=== PATIENT | male | born 1950 | race Caucasian/White ===

== ENCOUNTER 2016-04-12 00:10 | Emergency (ER) | payer MEDICARE, OTHER ==
[2016-04-12] MEDS ORDERED: METHYLPREDNISOLONE PF 125MG/VIAL IVP ONE ×2 (00:38→00:54)
[2016-04-12] MEDS ORDERED: DIPHENHYDRAMINE HCL IV 50 MG/ML VIAL IV ONE (00:38)
[2016-04-12] MEDS ORDERED: FAMOTIDINE IV 20 MG/2 ML VIAL IVP ONE (00:38)
--- NOTE | 2016-04-12 00:38 | Emergency Department Record ---
History of Present Illness - General Chief complaint: Facial Swelling Stated complaint: TONGUE SWOLLEN Time Seen by Provider: 04/12/16 00:32 Source: Patient Mode of Arrival: Ambulatory - History of Present Illness Initial Comments: The patient states he woke up tonight with the left side of his tongue swollen. He denies DANN, rashes, itchiness, dysphagia or voice changes. He takes an unknown blood pressure medicine, and three other medications which are listed on the chart. None of them are new. MD Complaint: Other (swollen tongue) Onset/Timin -: Hour(s) Severity: Moderate Treatment Prior to Arrival: None Previous Allergy History: Angioedema - Related Data Home Medications Medication Instructions Recorded Confirmed Last Taken (Blood Pressure Medication) 04/12/16 Unknown Aspirin [Aspirin EC] 81 mg PO DAILY 04/12/16 04/12/16 Unknown Lasix (Uknown Dose) 04/12/16 Unknown Simvastatin (Uknown Dose) 04/12/16 Unknown Previous Rx's Medication Instructions Recorded Famotidine [Heartburn Prevention] 20 mg PO BID #14 tablet 04/12/16 Prednisone [Prednisone 20Mg] 20 mg PO DAILY #20 tab 04/12/16 Allergies Allergy/AdvReac Type Severity Reaction Status Date / Time Penicillins Allergy BLISTERS Verified 04/12/16 00:23 Travel Screening - Travel/Exposure Within Last 30 Days Have you traveled within the last 30 days?: No Review of Systems Reviewed: No additional complaints except as noted below Constitutional: Reports: As per HPI. Denies: Chills, Fever, Malaise, Night sweats, Weakness, Weight change Eyes: Reports: As per HPI. Denies: Eye discharge, Eye pain, Photophobia, Vision change ENT: Reports: As per HPI. Denies: Congestion, Dental pain, Ear pain, Epistaxis , Hearing loss, Throat pain Respiratory: Reports: As per HPI. Denies: Cough, Dyspnea, Hemoptysis, Stridor, Wheezes Cardiovascular: Reports: As per HPI. Denies: Arrhythmia, Chest pain, Dyspnea on exertion, Edema, Murmurs, Orthopnea, Palpitations, Paroxysmal nocturnal dyspnea, Rheumatic Fever, Syncope Endocrine: Reports: As per HPI. Denies: Fatigue, Heat or cold intolerance, Polydipsia, Polyuria Gastrointestinal: Reports: As per HPI. Denies: Abdominal pain, Constipation, Diarrhea, Hematemesis, Hematochezia, Melena, Nausea, Vomiting Genitourinary: Reports: As per HPI. Denies: Dysuria, Frequency, Hematuria, Incontinence, Retention, Testicular pain, Testicular mass, Urgency Musculoskeletal: Reports: As per HPI. Denies: Arthralgia, Back pain, Gout, Joint swelling, Myalgia, Neck pain Skin: Reports: As per HPI. Denies: Bruising, Change in color, Change in hair/ nails, Lesions, Pruritus, Rash Neurological: Reports: As per HPI. Denies: Abnormal gait, Confusion, Headache, Numbness, Paresthesias, Seizure, Tingling, Tremors, Vertigo, Weakness Psychiatric: Reports: As per HPI. Denies: Anxiety, Auditory hallucinations, Depression, Homicidal thoughts, Suicidal thoughts, Visual hallucinations Hematological/Lymphatic: Reports: As per HPI. Denies: Anemia, Blood Clots, Easy bleeding, Easy bruising, Swollen glands Past Medical History - SOCIAL HISTORY Smoking Status: Never smoker Alcohol Use: None Drug Use: None - RESPIRATORY Hx Respiratory Disorders: No - CARDIOVASCULAR Hx Cardio Disorders: Yes Hx CHF: Yes Hx Hypertension: Yes - NEURO Hx Neuro Disorders: No - GI Hx GI Disorders: Yes Comment:: Barretts Esophagus - Hx Genitourinary Disorders: Yes Hx Kidney Stones: Yes (hx) - ENDOCRINE Hx Endocrine Disorders: No - MUSCULOSKELETAL Hx Musculoskeletal Disorders: No - PSYCH Hx Psych Problems: No - HEMATOLOGY/ONCOLOGY Hx Hematology/Oncology Disorders: No Family Medical History Any Significant Family History?: No Physical Exam - General General Appearance: Alert, Oriented x3, Cooperative, Mild distress (no stridor or drooling, speaks like "marble mouth") - Head Head exam: Normal inspection - Eye Eye exam: Normal appearance, PERRL Pupils: Normal accommodation - ENT ENT exam: Normal exam, Mucous membranes moist, Normal external ear exam, TM's normal bilaterally, Other (left side of tongue is swollen but posterior oral cavity is spared, normal uvula and voice) Ear exam: Normal external inspection. negative: External canal tenderness Nasal Exam: Normal inspection. negative: Discharge, Sinus tenderness Mouth exam: Normal external inspection, Other (left side of tongue swollen) Teeth exam: Normal inspection. negative: Dental caries Throat exam: Normal inspection. negative: Tonsillar erythema, Tonsillar exudate , R peritonsillar mass, L peritonsillar mass - Neck Neck exam: Normal inspection, Full ROM. negative: Lymphadenopathy, Meningismus , Tenderness - Respiratory Respiratory exam: Normal lung sounds bilaterally. negative: Respiratory distress - Cardiovascular Cardiovascular Exam: Regular rate, Normal rhythm, Normal heart sounds - GI/Abdominal GI/Abdominal exam: Soft, Normal bowel sounds. negative: Tenderness - Rectal Rectal exam: Deferred - exam: Deferred - Extremities Extremities exam: Normal inspection, Full ROM, Normal capillary refill. negative: Tenderness - Back Back exam: Reports: Normal inspection, Full ROM. Denies: Muscle spasm, Rash noted, Tenderness - Neurological Neurological exam: Alert, CN II-XII intact, Normal gait, Oriented X3, Reflexes normal - Psychiatric Psychiatric exam: Normal affect, Normal mood - Skin Skin exam: Dry, Intact, Normal color, Warm Course Vital Signs 04/12/16 00:18 Temperature 97.7 F Pulse Rate [ 88 Pulse Ox Probe] Respiratory 18 Rate Blood Pressure 155/78 [Left Arm] Pulse Ox 96 - Reevaluation(s) Reevaluation #1: A list of the common CHAPIN inhibitor medications was read to the patient. He thought one sounded familiar but is uncertain. The patient was advised to write down his medications, their doses, and their frequency on a paper to carry in his wallet and also in another family member's wallet. 04/12/16 00:48 Reevaluation #2: The patient states his tongue swelling has decreased but it is not yet normal. He will call the pharmacy to see if his unknown blood pressure medicine is an CHAPIN inhibitor and NOT take this medicine if it is. He will then talk to his PCP to change his medication if indicated. 04/12/16 01:36 Medical Decision Making - Management Options MDM Management: No Additional Work-up Planned Disposition Disposition: Discharge Clinical Impression: Tongue swelling Disposition: Home, Self-Care Condition: (1) Good Instructions: General Allergic Reaction (ED) Additional Instructions: Do not take your blood pressure medication until you can verify the name of it with pharmacy or PCP. If you are taking and CHAPIN inhibitor, then discontinue this medication. Take prednisone taper as instructed until gone. Take benadryl 50 mg every 6 hours. This may cause drowsiness. Follow up with your PCP on Friday for recheck and dosing of medications. Prescriptions: Famotidine [Heartburn Prevention] 20 mg PO BID #14 tablet Prednisone [Prednisone 20Mg] 20 mg PO DAILY #20 tab
[2016-04-12] MEDS ORDERED: DIPHENHYDRAMINE HCL IV 50 MG/ML VIAL IVP ONE (00:54)
[2016-04-12] MEDS ORDERED: 0.9 % SODIUM CHLORIDE 1000ML 1,000 ML IV ONE (00:54)
[2016-04-12] MEDS ORDERED: FAMOTIDINE IV 20 MG in 0.9 % SODIUM CHLORIDE 100ML 50 ML IVPB ONE (00:54)
== END 2016-04-12 01:48 | disposition home or self-care (01) ==
LOC: ER 00:10
DX: R22.0 Localized swelling, mass and lump, head (principal); I10 Essential (primary) hypertension
CPT/HCPCS: 96374; 96375; 99284; J1200; J2930; J3490

== ENCOUNTER 2016-10-26 22:12 | Emergency (ER) | payer MEDICARE, OTHER ==
--- NOTE | 2016-10-26 22:33 | Emergency Department Record ---
History of Present Illness - General Chief Complaint: General Stated Complaint: BLEEDING FROM SCRAB Time Seen by Provider: 10/26/16 22:28 Source: Patient Mode of Arrival: EMS - History of Present Illness Initial comments: The patient has not taken his medications for more than 3 months. He has numerous chronic medical problems but has not been compliant, even with his chronic wounds, the dressing of those wounds, and medications. Tonight he picked a scab off his left foot which started a varicose vein to spurt without stopping. He states that both his kidneys hurt, the left more than the right. - [place] Coma Scale Eye Response: (4) Open spontaneously Motor Response: (6) Obeys commands Verbal Response: (5) Oriented [place] Total: 15 - Related Data Home Medications Medication Instructions Recorded Confirmed Last Taken No Home Med [NO HOME MEDS] 10/26/16 10/26/16 Unknown Allergies Allergy/AdvReac Type Severity Reaction Status Date / Time Penicillins Allergy BLISTERS Verified 04/12/16 00:23 Travel Screening - Travel/Exposure Within Last 30 Days Have you traveled within the last 30 days?: No - Travel Symptoms Symptom Screening: None Review of Systems Reviewed: No additional complaints except as noted below Constitutional: Reports: As per HPI. Denies: Chills, Fever, Malaise, Night sweats, Weakness, Weight change Eyes: Reports: As per HPI. Denies: Eye discharge, Eye pain, Photophobia, Vision change ENT: Reports: As per HPI. Denies: Congestion, Dental pain, Ear pain, Epistaxis , Hearing loss, Throat pain Respiratory: Reports: As per HPI. Denies: Cough, Dyspnea, Hemoptysis, Stridor, Wheezes Cardiovascular: Reports: As per HPI. Denies: Arrhythmia, Chest pain, Dyspnea on exertion, Edema, Murmurs, Orthopnea, Palpitations, Paroxysmal nocturnal dyspnea, Rheumatic Fever, Syncope Endocrine: Reports: As per HPI. Denies: Fatigue, Heat or cold intolerance, Polydipsia, Polyuria Gastrointestinal: Reports: As per HPI. Denies: Abdominal pain, Constipation, Diarrhea, Hematemesis, Hematochezia, Melena, Nausea, Vomiting Genitourinary: Reports: As per HPI. Denies: Dysuria, Frequency, Hematuria, Incontinence, Retention, Testicular pain, Testicular mass, Urgency Musculoskeletal: Reports: As per HPI. Denies: Arthralgia, Back pain, Gout, Joint swelling, Myalgia, Neck pain Skin: Reports: As per HPI. Denies: Bruising, Change in color, Change in hair/ nails, Lesions, Pruritus, Rash Neurological: Reports: As per HPI. Denies: Abnormal gait, Confusion, Headache, Numbness, Paresthesias, Seizure, Tingling, Tremors, Vertigo, Weakness Psychiatric: Reports: As per HPI. Denies: Anxiety, Auditory hallucinations, Depression, Homicidal thoughts, Suicidal thoughts, Visual hallucinations Hematological/Lymphatic: Reports: As per HPI. Denies: Anemia, Blood Clots, Easy bleeding, Easy bruising, Swollen glands Past Medical History - SOCIAL HISTORY Smoking Status: Never smoker Alcohol Use: None Drug Use: None - RESPIRATORY Hx Respiratory Disorders: No - CARDIOVASCULAR Hx Cardio Disorders: Yes Hx CHF: Yes Hx Hypertension: Yes - NEURO Hx Neuro Disorders: No - GI Hx GI Disorders: Yes Comment:: Barretts Esophagus - Hx Genitourinary Disorders: Yes Hx Kidney Stones: Yes (hx) - ENDOCRINE Hx Endocrine Disorders: No - MUSCULOSKELETAL Hx Musculoskeletal Disorders: No - PSYCH Hx Psych Problems: No - HEMATOLOGY/ONCOLOGY Hx Hematology/Oncology Disorders: No Family Medical History Any Significant Family History?: Yes Hx Dementia: Father, Mother Hx Diabetes: Mother, Brother/Sister Physical Exam - General General Appearance: Alert, Oriented x3, Cooperative, No acute distress, Other ( poor hygeine, barefooted, bandage to involved foot, no bleeding visible on bandage) - Head Head exam: Normal inspection - Eye Eye exam: Normal appearance, PERRL Pupils: Normal accommodation - ENT ENT exam: Normal exam, Mucous membranes moist, Normal external ear exam, Normal orophraynx, TM's normal bilaterally Ear exam: Normal external inspection. negative: External canal tenderness Nasal Exam: Normal inspection. negative: Discharge, Sinus tenderness Mouth exam: Normal external inspection, Tongue normal Teeth exam: Normal inspection. negative: Dental caries Throat exam: Normal inspection. negative: Tonsillar erythema, Tonsillar exudate - Neck Neck exam: Normal inspection, Full ROM. negative: Tenderness - Respiratory Respiratory exam: Normal lung sounds bilaterally. negative: Respiratory distress - Cardiovascular Cardiovascular Exam: Regular rate, Normal rhythm, Normal heart sounds - GI/Abdominal GI/Abdominal exam: Soft, Normal bowel sounds, Other (protruberant abdomen, nontender, old surgical scars). negative: Tenderness - Rectal Rectal exam: Deferred - exam: Deferred - Extremities Extremities exam: Normal inspection, Full ROM, Normal capillary refill, Pedal edema (chronic bilateral edema with tense skin, advanced vascular changes and chronic wounds to shins and feet.). negative: Tenderness - Back Back exam: Reports: Normal inspection, Full ROM. Denies: Muscle spasm, Rash noted, Tenderness - Neurological Neurological exam: Alert, Normal gait, Oriented X3, Reflexes normal - Psychiatric Psychiatric exam: Normal affect, Normal mood - Skin Skin exam: Dry, Intact, Normal color, Warm Course Vital Signs 10/26/16 22:18 Temperature 98.1 F Respiratory 20 Rate Blood Pressure 186/103 - Reevaluation(s) Reevaluation #1: PROCEDURE: Copious irrigation, cleansing, reveals no active bleeding, but some varicosities. Dermabond applied generously twice to varicosities. Pressure dressing, elevation given for home. 10/26/16 23:30 Medical Decision Making - Management Options MDM Management: No Additional Work-up Planned - Data Complexity MDM Data: Labs Ordered and/or Reviewed - Lab Data Result diagrams: 10/26/16 22:45 10/26/16 22:45 Disposition Disposition: Discharge Clinical Impression: Bleeding from varicose veins of right lower extremity Disposition: Home, Self-Care Condition: (1) Good Instructions: Peripheral Vascular Disease (ED) Additional Instructions: Keep leg elevated above heart and philip wrap on foot. Do not ambulate on this leg over the weekend. Follow up with PCP Friday morning for recheck. Do not pick scabs. Forms: Patient Portal Access Quality - Quality Measures Quality Measures: N/A - Blood Pressure Screening Does Patient Have Any of the Following: Active Dx of HTN Blood Pressure Classification: Hypertensive Reading Systolic Measurement: 186 Diastolic Measurement: 103 Screening for High Blood Pressure: Patient Exclusion, Hx of HTN [G9744]
[2016-10-26 23:02] LABS: URINE APPEARANCE CLEAR; URINE BILIRUBIN NEGATIVE (NEGATIVE); URINE BLOOD NEGATIVE (NEGATIVE); URINE COLOR YELLOW; URINE GLUCOSE (UA) NEGATIVE (NEGATIVE); URINE KETONE NEGATIVE (NEGATIVE); URINE LEUKOCYTE ESTERASE NEGATIVE (NEGATIVE); URINE NITRITE NEGATIVE (NEGATIVE); URINE PROTEIN NEGATIVE (NEGATIVE); URINE UROBILINOGEN 0.2 E.U./dL (0.20 - 1.00)
[2016-10-26 23:05] LABS: BASO % 0.4 % (0-6); EOS % 4.6 % (0-6); GRAN % 55.3 % (47-80); HEMATOCRIT 42.6 % (42.0-52.0); HEMOGLOBIN 14.4 gm/dl (14.0-18.0); LYMPH % 27.5 % (16-45); MEAN CELL VOLUME 91.8 fl (81-97); MEAN CORPUSCULAR HGB CONC 33.8 g/dl (32-36); MEAN PLATELET VOLUME 9.8 fl (7.4-10.4); MONO % 12.2 % (0-9); PLATELET COUNT 221 K/uL (130-400); RED BLOOD COUNT 4.64 M/uL (4.40-5.70); RED CELL DISTRIBUTION WIDTH 13.4 % (11.5-14.5); WHITE BLOOD COUNT W/O DIFF 7.4 K/uL (4.2-12.2)
[2016-10-26 23:13] LABS: BLOOD UREA NITROGEN 14 mg/dL (9-20); CREATININE 1.1 mg/dL (0.66-1.25); EST GLOMERULAR FILTRATION RATE > 60 ml/min; GLUCOSE,RANDOM 115 mg/dL (70-110); LIPASE 71 U/L (23-300)
== END 2016-10-26 23:55 | disposition home or self-care (01) ==
LOC: ER 22:12
DX: I83.891 Varicose veins of right lower extremity with other complications (principal)
CPT/HCPCS: 80048; 81003; 83690; 85025; 99283